=== PATIENT | female | born 1970 | race Caucasian/White ===

== ENCOUNTER → 2016-11-12 | Outpatient (CLI) | payer BC, OTHER ==
[~2016-11-12] MED LIST: IBUP800T PO; LIDO5DIS EX; SEASONALE PO; VICO5TAB; VIVELLE PO; YASMIN PO; ZOLO50TA OR; ZOLOFT50; ZOLOFT50 PO
--- NOTE | 2016-11-12 15:52 | REP ---
RIGHT SHOULDER, THREE VIEWS: HISTORY: Pain. There is no acute fracture or dislocation. There is narrowing of the acromioclavicular joint space. Calcification is present superior to the joint space. This represents ligamentous or tendon calcification. IMPRESSION: Degenerative change as described above. Signed by José Rodriguez MD 11/12/2016 03:53 P
== END | disposition home or self-care (01) ==
LOC: M WUC 13:08
PROVIDERS: ATTEND Physician Assistant
DX: M19.011 Primary osteoarthritis, right shoulder (principal)

== ENCOUNTER → 2018-08-28 | Outpatient (REF) | payer OTHER | LOC: M LAB REF 17:28 | DX: D23.5 Other benign neoplasm of skin of trunk (principal) | CPT/HCPCS: 88305 ==

== ENCOUNTER → 2018-11-21 | Outpatient (CLI) | payer BC, OTHER ==
[2018-11-21 11:17] LABS: BASO # 0.1 10^3/uL (0.0-0.2); BASO % 0.6 % (0.0-1.0); EOS # 0.1 10^3/uL (0.0-0.50); EOS % 1.1 % (0.0-3.0); HEMATOCRIT 39.1 % (36.0-47.0); HEMOGLOBIN 13.1 g/dl (12.0-15.5); LYMPH % 36.1 % (24.0-44.0); MEAN CORPUSCULAR HGB CONC 33.5 g/dl (32.0-36.5); MEAN CORPUSCULAR VOLUME 98.5 fl (80.0-96.0); MONO # 0.5 10^3/uL (0.0-0.8); MONO % 5.8 % (0.0-5.0); NEUTROPHILS # 4.6 10^3/uL (1.8-7.7); NEUTROPHILS % 56.2 % (36.0-66.0); PLATELET COUNT, AUTOMATED 289 10^3/uL (150-450); RED BLOOD COUNT 3.97 10^6/uL (4.00-5.40); WHITE BLOOD COUNT 8.3 10^3/uL (4.0-10.0)
[2018-11-21 11:31] LABS: ALBUMIN 3.9 GM/DL (3.2-5.2); ALT/SGPT 18 U/L (12-78); BILIRUBIN,TOTAL 0.5 MG/DL (0.2-1.0); BLOOD UREA NITROGEN 12 MG/DL (7-18); CALCIUM LEVEL 8.4 MG/DL (8.5-10.1); CARBON DIOXIDE LEVEL 26 MEQ/L (21-32); CHLORIDE LEVEL 105 MEQ/L (98-107); CHOLESTEROL LEVEL 201 MG/DL (<200); CHOLESTEROL RISK RATIO 3.654 (<5); CREATININE FOR GFR 0.75 MG/DL (0.55-1.30); FREE T4 0.91 NG/DL (0.76-1.46); GLOMERULAR FILTRATION RATE > 60.0 (>51); GLUCOSE, FASTING 86 MG/DL (70-100); HDL CHOLESTEROL 55 MG/DL (>40); LDL CHOLESTEROL 118 MG/DL (<100); NON-HDL-C 146 MG/DL; POTASSIUM SERUM 4.5 MEQ/L (3.5-5.1); SODIUM LEVEL 139 MEQ/L (136-145); TOTAL PROTEIN 6.7 GM/DL (6.4-8.2); TRIGLYCERIDES LEVEL 138 MG/DL (<150)
== END ==
LOC: M SMT 09:08
PROVIDERS: ATTEND Physician Assistant
DX: Q43.1 Hirschsprung's disease (principal); Z13.29 Encounter for screening for other suspected endocrine disorder; M85.80 Other specified disorders of bone density and structure, unspecified site; Z13.220 Encounter for screening for lipoid disorders

== ENCOUNTER → 2018-12-01 | Outpatient (REF) | payer OTHER ==
[~2018-12-01] MED LIST changes: +CIPR500T39; +CLIN150C14 PO; +HYDR-3713; +KETO10TAB PO; +MUPI2OI; +ONDA4TAB5; +SMZ/TMP; +TRAM50TA2 PO; +TRAZ-160
== END ==
LOC: M LAB REF 17:01
PROVIDERS: ATTEND Physician Assistant
DX: L03.032 Cellulitis of left toe (principal)

== ENCOUNTER 2018-12-03 17:10 | Emergency (ER) | payer BC, OTHER ==
[~2018-12-03] VITALS: Ht 167.6 cm; Wt 75.9 kg
[~2018-12-03 17:10] MED LIST changes: -CIPR500T39; -CLIN150C14 PO; -HYDR-3713; -KETO10TAB PO; -MUPI2OI; -ONDA4TAB5; -SMZ/TMP; -TRAM50TA2 PO; -TRAZ-160
[2018-12-03 17:11] VITALS: BP 141/67
[2018-12-03] MEDS ORDERED: MUPI2OI (17:21)
[2018-12-03] MEDS ORDERED: SMZ/TMP (17:21)
[2018-12-03] MEDS ORDERED: ONDA4TAB5 (17:21)
[2018-12-03] MEDS ORDERED: CIPR500T39 (17:21)
[2018-12-03] MEDS ORDERED: TRAZ-160 (17:21)
[2018-12-03] MEDS ORDERED: HYDR-3713 (17:21)
[2018-12-03] MEDS ORDERED: KETO10TAB PO (18:56)
[2018-12-03] MEDS ORDERED: KETOROLAC TROMETHAMINE 10 MG TAB PO ONE (19:00)
[2018-12-08] MEDS ORDERED: TRAM50TA2 PO (12:54)
[2018-12-08] MEDS ORDERED: CLIN150C14 PO (12:54)
== END 2018-12-03 19:29 | disposition home or self-care (01) ==
LOC: M ED 17:10
DX: L02.612 Cutaneous abscess of left foot (principal)

== ENCOUNTER → 2018-12-03 | Outpatient (CLI) | payer BC, OTHER ==
[2018-12-03 13:35] LABS: BASO # 0.1 10^3/uL (0.0-0.2); BASO % 0.5 % (0.0-1.0); EOS # 0.1 10^3/uL (0.0-0.50); EOS % 0.9 % (0.0-3.0); HEMATOCRIT 40.9 % (36.0-47.0); HEMOGLOBIN 13.3 g/dl (12.0-15.5); LYMPH # 2.3 10^3/uL (1.5-4.5); LYMPH % 21.4 % (24.0-44.0); MEAN CORPUSCULAR HEMOGLOBIN 32.6 pg (27.0-33.0); MEAN CORPUSCULAR HGB CONC 32.5 g/dl (32.0-36.5); MEAN CORPUSCULAR VOLUME 100.2 fl (80.0-96.0); MONO # 0.5 10^3/uL (0.0-0.8); MONO % 4.9 % (0.0-5.0); NEUTROPHILS # 7.8 10^3/uL (1.8-7.7); PLATELET COUNT, AUTOMATED 260 10^3/uL (150-450); RED BLOOD COUNT 4.08 10^6/uL (4.00-5.40); WHITE BLOOD COUNT 10.8 10^3/uL (4.0-10.0)
[2018-12-03 14:18] LABS: BLOOD UREA NITROGEN 7 MG/DL (7-18); C REACTIVE PROTEIN QUANTITATIV 0.74 MG/DL (0.00-0.30); CALCIUM LEVEL 8.7 MG/DL (8.5-10.1); CARBON DIOXIDE LEVEL 26 MEQ/L (21-32); CHLORIDE LEVEL 105 MEQ/L (98-107); CREATININE FOR GFR 0.84 MG/DL (0.55-1.30); GLOMERULAR FILTRATION RATE > 60.0 (>51); GLUCOSE, FASTING 106 MG/DL (70-100); POTASSIUM SERUM 4.9 MEQ/L (3.5-5.1); SODIUM LEVEL 136 MEQ/L (136-145)
--- NOTE | 2018-12-04 02:55 | REP ---
Clinical: 1st toe infection post trauma. Technique: AP, lateral, bilateral oblique views left foot . Findings: Soft tissue swelling overlying the first toe. No subcutaneous emphysema or foreign body identified. No acute fracture or dislocation identified. Impression: Soft tissue swelling surrounding the first toe consistent with infectious process. Electronically Signed by Dimas Hanley MD 12/04/2018 02:46 A
== END ==
LOC: M SMT 09:14
PROVIDERS: ATTEND Physician Assistant
DX: S91.132A Puncture wound without foreign body of left great toe without damage to nail, initial encounter (principal); W18.30XA Fall on same level, unspecified, initial encounter; Y92.009 Unspecified place in unspecified non-institutional (private) residence as the place of occurrence of the external cause

== ENCOUNTER → 2018-12-08 | Outpatient (CLI) | payer BC, OTHER ==
[~2018-12-08] MED LIST changes: +CIPR500T39; +CLIN150C14 PO; +HYDR-3713; +KETO10TAB PO; +MUPI2OI; +ONDA4TAB5; +SMZ/TMP; +TRAM50TA2 PO; +TRAZ-160
[2018-12-08 13:16] LABS: BASO # 0.1 10^3/uL (0.0-0.2); BASO % 0.9 % (0.0-1.0); EOS # 0.1 10^3/uL (0.0-0.50); EOS % 0.7 % (0.0-3.0); HEMATOCRIT 37.9 % (36.0-47.0); HEMOGLOBIN 12.4 g/dl (12.0-15.5); LYMPH % 37.7 % (24.0-44.0); MEAN CORPUSCULAR HEMOGLOBIN 32.7 pg (27.0-33.0); MEAN CORPUSCULAR HGB CONC 32.7 g/dl (32.0-36.5); MONO # 0.4 10^3/uL (0.0-0.8); NEUTROPHILS # 4.5 10^3/uL (1.8-7.7); NEUTROPHILS % 55.2 % (36.0-66.0); PLATELET COUNT, AUTOMATED 232 10^3/uL (150-450); RED BLOOD COUNT 3.79 10^6/uL (4.00-5.40); WHITE BLOOD COUNT 8.1 10^3/uL (4.0-10.0)
[2018-12-08 13:39] LABS: BLOOD UREA NITROGEN 19 MG/DL (7-18); CALCIUM LEVEL 8.6 MG/DL (8.5-10.1); CARBON DIOXIDE LEVEL 27 MEQ/L (21-32); CHLORIDE LEVEL 106 MEQ/L (98-107); CREATININE FOR GFR 0.65 MG/DL (0.55-1.30); GLOMERULAR FILTRATION RATE > 60.0 (>51); GLUCOSE, FASTING 98 MG/DL (70-100); POTASSIUM SERUM 4.1 MEQ/L (3.5-5.1); SODIUM LEVEL 139 MEQ/L (136-145)
--- NOTE | 2018-12-08 15:38 | ECGEPIP ---
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
== END ==
LOC: M LAB 12:31
PROVIDERS: ATTEND Podiatrist
DX: M79.672 Pain in left foot (principal); L03.039 Cellulitis of unspecified toe

== ENCOUNTER 2018-12-09 06:09 | Day surgery (SDC) | payer BC, OTHER ==
[~2018-12-09] VITALS: Ht 167.6 cm; Wt 75.7 kg
[~2018-12-09 06:09] MED LIST changes: +LIDOCAINE 1% MDV 20ML VIAL SQ PRN
[2018-12-09] MEDS ORDERED: LR 1,000 ML IV SCH ×2 (06:30→08:45)
[2018-12-09] MEDS ORDERED: PROPOFOL 200 MG/20 ML VIAL As Ordered ONE ×2 (06:35→06:36)
[2018-12-09] MEDS ORDERED: LIDOCAINE 2% INJ 100 MG/5 ML SDV (FOR ANES.) As Ordered ONE (06:36)
[2018-12-09] MEDS ORDERED: ONDANSETRON 4MG/2ML VIAL (J2405) As Ordered ONE (06:36)
[2018-12-09] MEDS ORDERED: MIDAZOLAM INJ 2 MG/2 ML VIAL (J2250) As Ordered ONE (06:36)
[2018-12-09] MEDS ORDERED: fentaNYL 100 MCG/2 ML INJECTION (J3010) As Ordered ONE (06:36)
[2018-12-09] MEDS ORDERED: GENTAMICIN SULF INJ 80MG/2ML VIAL (J1580) As Ordered ONE (07:13)
[2018-12-09] MEDS ORDERED: ROPIvacaine 0.5% 30 ML INJECTION (J2795 PER 1MG) As Ordered ONE (07:13)
[2018-12-09] MEDS ORDERED: BUPIVACAINE HCL 0.5% 10 ML VIAL As Ordered ONE (07:14)
[2018-12-09] MEDS ORDERED: LIDOCAINE 2% MDV 20 ML VIAL As Ordered ONE (07:14)
[2018-12-09] MEDS ORDERED: VANCOMYCIN 1000 MG/20 ML VIAL (J3370) As Ordered ONE (07:15)
[2018-12-09] MEDS ORDERED: VANCOMYCIN HCL 1,000 MG, VIAL MATE ADAPTER 1 EACH in D5W 250 ML IV ONE (07:30)
[2018-12-09] MEDS ORDERED: ePHEDrine SULFATE 25 MG/5 ML(5MG/ML) SYRINGE As Ordered ONE (07:57)
[2018-12-09] MEDS ORDERED: ONDANSETRON 4MG/2ML VIAL (J2405) IV PRN (08:45)
[2018-12-09] MEDS ORDERED: NORCO, ANEXSIA 5/325MG TABLET (HYDROcodone/ACETAMINOPHEN) PO PRN (08:45)
[2018-12-09 09:15] VITALS: BP 114/65
== END 2018-12-09 09:30 | disposition home or self-care (01) ==
LOC: M SDC 06:09
PROVIDERS: ATTEND Podiatrist
DX: L02.612 Cutaneous abscess of left foot (principal); M79.675 Pain in left toe(s); Z79.899 Other long term (current) drug therapy; Q43.1 Hirschsprung's disease
CPT/HCPCS: 10140; 87070; 87075; 87077; 87186; 87205; J1580; J2250; J2405; J3010; J3370

== ENCOUNTER 2019-05-27 11:26 | Day surgery (SDC) | payer BC, OTHER ==
[~2019-05-27] VITALS: Ht 167.6 cm; Wt 70.3 kg
[~2019-05-27 11:26] MED LIST changes: -LIDOCAINE 1% MDV 20ML VIAL SQ PRN; +NS 1,000 ML IV ONE; -TRAZ-160; +TRAZ-186 PO; +TRAZ-252
[2019-05-27] MEDS ORDERED: PROPOFOL 200 MG/20 ML VIAL As Ordered ONE (12:23)
[2019-05-27] MEDS ORDERED: LIDOCAINE 2% INJ 100 MG/5 ML SDV (FOR ANES.) As Ordered ONE (12:24)
--- NOTE | 2019-05-27 13:26 | ROOR ---
Patient Name: Adry Stone Procedure Date: 05/27/2019 1:06 PM Date of : 1970 Age: 48 Room: [facility] Gender: Female Note Status: Finalized Procedure: Colonoscopy Indications: High risk colon cancer surveillance: Personal history of colonic polyps Providers: Kevan Capps MD Referring MD: Aixa MONK DO Requesting Provider: Medicines: Monitored Anesthesia Care Complications: No immediate complications. Procedure: Pre-Anesthesia Assessment: - Prior to the procedure, a History and Physical was performed, and patient medications and allergies were reviewed. The patient is competent. The risks and benefits of the procedure and the sedation options and risks were discussed with the patient. All questions were answered and informed consent was obtained. Patient identification and proposed procedure were verified by the physician, the nurse and the anesthesiologist in the endoscopy suite. Mental Status Examination: alert and oriented. Airway Examination: normal oropharyngeal airway and neck mobility. Respiratory Examination: clear to auscultation. CV Examination: normal. Prophylactic Antibiotics: The patient does not require prophylactic antibiotics. Prior Anticoagulants: The patient has taken no previous anticoagulant or antiplatelet agents. ASA Grade Assessment: II - A patient with mild systemic disease. After reviewing the risks and benefits, the patient was deemed in satisfactory condition to undergo the procedure. The anesthesia plan was to use monitored anesthesia care (MAC). Immediately prior to administration of medications, the patient was re-assessed for adequacy to receive sedatives. The heart rate, respiratory rate, oxygen saturations, blood pressure, adequacy of pulmonary ventilation, and response to care were monitored throughout the procedure. The physical status of the patient was re-assessed after the procedure. The Colonoscope was introduced through the anus and advanced to the ileocolonic anastomosis. The colonoscopy was performed without difficulty. The patient tolerated the procedure well. The quality of the bowel preparation was fair. Findings: The perianal and digital rectal examinations were normal. The area at 40 cm proximal to the anus appeared normal. Ileocolonic anastomosis at 40 cms Estimated blood loss: none. Impression: - Preparation of the colon was fair. - The area at 40 cm proximal to the anus is normal. - No specimens collected. Recommendation: - Discharge patient to home (ambulatory). - Repeat colonoscopy in 10 years for screening purposes. Kevan Capps MD Kevan Capps MD 05/27/2019 1:25:52 PM Electronically signed by Kevan Capps MD Number of Addenda: 0 Note Initiated On: 05/27/2019 1:06 PM Estimated Blood Loss: Estimated blood loss: none.
[2019-05-27 13:40] VITALS: BP 111/55
== END 2019-05-27 13:47 | disposition home or self-care (01) ==
LOC: M OPP 11:26
PROVIDERS: ATTEND Surgery
DX: Z12.11 Encounter for screening for malignant neoplasm of colon (principal); Z86.010 Personal history of colon polyps; Z98.0 Intestinal bypass and anastomosis status; Q43.1 Hirschsprung's disease; Z86.14 Personal history of Methicillin resistant Staphylococcus aureus infection; M75.52 Bursitis of left shoulder; Z87.19 Personal history of other diseases of the digestive system; Z79.899 Other long term (current) drug therapy; Z87.891 Personal history of nicotine dependence; Z80.3 Family history of malignant neoplasm of breast

== ENCOUNTER → 2019-11-23 | Outpatient (REF) | payer BC, OTHER ==
[~2019-11-23] MED LIST changes: -NS 1,000 ML IV ONE; +ONDA-83; -ONDA4TAB5
== END ==
LOC: M LAB REF 19:22
PROVIDERS: ATTEND Plastic Surgery Surgery of the Hand
DX: D49.2 Neoplasm of unspecified behavior of bone, soft tissue, and skin (principal)

== ENCOUNTER → 2020-09-12 | Outpatient (REF) | payer OTHER | LOC: M LAB REF 16:49 | PROVIDERS: ATTEND Physician Assistant | DX: R35.0 Frequency of micturition (principal) ==

== ENCOUNTER → 2021-01-23 | Outpatient (CLI) | payer BC, OTHER ==
[~2021-01-23] MED LIST changes: -CLIN150C14 PO; +CLIN150C15 PO; +LIQUID POLIBAR PLUS 105% w/v 1900ML BTL As Ordered ONE
--- NOTE | 2021-01-23 14:54 | REP ---
INDICATION: CHRONIC IDIOPATHIC CONSTIPATION. COMPARISON: None. TECHNIQUE: The procedure was performed under the direct supervision of Dr. Tolbert. The images were reviewed with Dr. Tolbert. The it architecture consultant film shows normal organomegaly or pathological mass is. The intestinal gas pattern is nonspecific. There are phleboliths in the pelvis. There are bowel sutures in the left abdomen consistent with the patient's history of partial colectomy. Liquid barium and air were instilled into the colon and retrograde flow of the barium intermixed. 1.1 minutes of fluoroscopy time was utilized for this procedure. FINDINGS: There is free flow of contrast to the ileocolic anastomosis. There is residual stool within the colon. Contrast extends through the anastomosis into the small bowel. There are no polypoid masses identified. There are no annular constricting lesions. There is no evidence of stricture or obstruction at the anastomosis. IMPRESSION: There is residual stool within the colon. There are postsurgical changes consistent with the patient's history of partial colectomy and ileocolic anastomosis. There are no annular constricting lesions or polypoid masses identified. There is no stricture or obstruction at the anastomosis. <Electronically signed by James Hines > 01/23/21 144 <Electronically signed by Surya Tolbert > 01/23/21 [id number]
== END ==
LOC: M RAD 09:01
PROVIDERS: ATTEND Surgery
DX: K59.04 Chronic idiopathic constipation (principal)

== ENCOUNTER → 2021-04-06 | Outpatient (CLI) | payer BC, OTHER ==
[~2021-04-06] MED LIST changes: -LIQUID POLIBAR PLUS 105% w/v 1900ML BTL As Ordered ONE
--- NOTE | 2021-04-07 03:34 | REP ---
INDICATION: COUGH, OTHER CHEST PAIN COMPARISON: 04/03/2015 TECHNIQUE: PA and lateral. FINDINGS: The mediastinum and cardiac silhouette are normal. The lung enamorado are clear and without acute consolidation, effusion, or pneumothorax. The skeletal structures are intact and normal. IMPRESSION: No acute cardiopulmonary process. <Electronically signed by Dimas Hanley > 04/07/21 [id number]
== END ==
LOC: M WUC 13:52
PROVIDERS: ATTEND Physician Assistant
DX: R05 Cough (principal); R07.89 Other chest pain

== ENCOUNTER 2021-11-04 10:25 | Emergency (ER) | payer BC, OTHER ==
[~2021-11-04] VITALS: Ht 167.6 cm; Wt 75.0 kg
[~2021-11-04 10:25] MED LIST changes: -CLIN150C15 PO; +CLIN150C17 PO
[2021-11-04] MEDS ORDERED: ACETAMINOPHEN 500 MG TAB PO ONE (13:05)
[2021-11-04] MEDS ORDERED: NS 1,000 ML IV ONE (13:05)
[2021-11-04] MEDS ORDERED: ONDANSETRON 4MG/2ML VIAL IV ONE (13:05)
[2021-11-04] MEDS: GASTROGRAFIN SOLUTION 30ML PO SCH ×2 (13:45→14:45)
[2021-11-04 13:48] LABS: BASO % 0.4 % (0.0-1.0); EOS % 0.1 % (0.0-3.0); HEMATOCRIT 38.2 % (36.0-47.0); HEMOGLOBIN 12.8 g/dl (12.0-15.5); LYMPH # 1.3 10^3/uL (1.5-5.0); LYMPH % 16.1 % (24.0-44.0); MEAN CORPUSCULAR HEMOGLOBIN 32.2 pg (27.0-33.0); MEAN CORPUSCULAR HGB CONC 33.5 g/dl (32.0-36.5); MONO # 0.6 10^3/uL (0.0-0.8); MONO % 6.7 % (2.0-8.0); NEUTROPHILS # 6.2 10^3/uL (1.5-8.5); NEUTROPHILS % 76.3 % (36.0-66.0); PLATELET COUNT, AUTOMATED 280 10^3/uL (150-450); RED BLOOD COUNT 3.98 10^6/uL (4.00-5.40); WHITE BLOOD COUNT 8.2 10^3/uL (4.0-10.0)
[2021-11-04 14:07] LABS: ALBUMIN 3.8 GM/DL (3.2-5.2); ALT/SGPT 22 U/L (12-78); BILIRUBIN,DIRECT < 0.1 MG/DL (0.0-0.2); BILIRUBIN,TOTAL 0.4 MG/DL (0.2-1.0); BLOOD UREA NITROGEN 13 MG/DL (7-18); CALCIUM LEVEL 8.7 MG/DL (8.5-10.1); CARBON DIOXIDE LEVEL 26 MEQ/L (21-32); CHLORIDE LEVEL 107 MEQ/L (98-107); CREATININE FOR GFR 0.73 MG/DL (0.55-1.30); GLOMERULAR FILTRATION RATE > 60.0 (>51); GLUCOSE, FASTING 90 MG/DL (70-100); LIPASE 98 U/L (73-393); POTASSIUM SERUM 4.2 MEQ/L (3.5-5.1); SODIUM LEVEL 139 MEQ/L (136-145); TOTAL PROTEIN 6.8 GM/DL (6.4-8.2)
[2021-11-04] MEDS ORDERED: ISOVUE-370 76% 100ML VIAL As Ordered ONE (14:48)
[2021-11-04] MEDS ORDERED: AZIT500T5 PO (16:14)
[2021-11-04] MEDS ORDERED: DICY10CA13 PO (16:14)
[2021-11-04] MEDS ORDERED: DICYCLOMINE 10 MG CAP PO ONE (16:15)
[2021-11-04] MEDS ORDERED: AZITHROMYCIN 250MG TABLET PO ONE (16:15)
[2021-11-04 16:31] VITALS: BP 107/55
== END 2021-11-04 16:35 | disposition home or self-care (01) ==
LOC: M ED 10:25
DX: A04.5 Campylobacter enteritis (principal)
CPT/HCPCS: 74177; 80048; 80076; 83690; 85025; 87505; 96361; 96374; 99283; J2405; Q9963; Q9967